=== PATIENT | female | born 1995 | race Caucasian/White ===

== ENCOUNTER 2018-08-20 09:57 | Inpatient (IN) | payer OTHER ==
[2018-08-20] MEDS ORDERED: CITRIC ACID/SODIUM CITRATE 30 ML UNIT-DOSE CUP PO ONE (10:00)
[2018-08-20] MEDS: ELECTROLYTE-148 SOLN 500 ML IV SCH (10:30)
[2018-08-20] MEDS ORDERED: ELECTROLYTE-148 SOLN 1,000 ML IV SCH (10:31)
[2018-08-20 11:11] VITALS: BMI 36.6
[2018-08-20 11:38] LABS: URINE APPEARANCE CLEAR; URINE BILIRUBIN NEGATIVE (<2.0 mg/dL); URINE COLOR YELLOW; URINE GLUCOSE (UA) NEGATIVE (NEGATIVE); URINE KETONE NEGATIVE (NEGATIVE); URINE LEUK ESTERASE NEGATIVE (NEGATIVE); URINE NITRITE NEGATIVE (NEGATIVE); URINE PROTEIN NEGATIVE (NEGATIVE); URINE UROBILINOGEN NEGATIVE mg/dL (0.2-1.0)
[2018-08-20 11:52] LABS: COCAINE, UR NEGATIVE ng/ml (CUTOFF=300); METHADONE, UR NEGATIVE ng/ml (CUTOFF=300); OPIATES, URI NEGATIVE ng/ml (CUTOFF=300); PHENCYCLIDINE,URINE NEGATIVE ng/ml (CUTOFF=25); URINE AMPHETAMINES NEGATIVE ng/ml (CUTOFF=500); URINE BARBITURATES NEGATIVE ng/ml (CUTOFF=200); URINE BENZODIAZEPINES NEGATIVE ng/ml (CUTOFF=200)
[2018-08-20] MEDS ORDERED: ONDANSETRON 4 MG/2 ML VIAL IVPUSH PRN (13:04)
[2018-08-20] MEDS ORDERED: morphine SULFATE/Preservative Free 0.5 MG/ML (1cc Syringe) EP ONE (13:04)
[2018-08-20] MEDS ORDERED: morphine SULFATE/Preservative Free 0.5 MG/ML (1cc Syringe) ONE (13:11)
[2018-08-20] MEDS ORDERED: ceFAZolin SODIUM 1 GM VIAL ONE ×2 (13:12→16:48)
--- NOTE | 2018-08-20 13:18 | HP ---
Past Medical History - Primary Care Physician PCP:: Bianca Rodriguez - Admission Chief Complaint: 22 yrs 40.5 weeks diagnosed by US breech presentation hence taken fpr promaty c/section. 08/19/18 sono amy ,40.4 wks, breech, post placenta, , bpp /, RAAD 9.2 cm, efw 8'5", marginal cord placenta insertion , NST reassuring History of Present Illness: pt presented in the clinic fro [place]. she had only one visit in the clinic at [address] [place] [address] on 08/18/18 some records from [place] noted A Neg , Antepartum RHOGAM taken hep c ab neg , hbsag neg, rpr nr, , gc/ct neg, quad screen wnl, sickle neg, pngt 108 06/01/18 tdap taken 08/18/18 hiv neg gbs pending from 08/18/18 wt gain 58 lbs History Source: Patient, Medical Record Limitations to Obtaining History: No Limitations - Past Medical History NBA PLAYER: No: Migraine Cardiovascular: No: AFIB, HTN Pulmonary: No: Asthma Gastrointestinal: No: Ascites, Cancer, Constipation, Crohn's Disease, Diverticulitis, Diverticulosis, Esophageal Varices, Gastritis, GERD, GI Bleed, Hemorrhoids, Hiatal Hernia, Inflamatory Bowel Disease, Irritable Bowel Disease, Pancreatitis, Peptic Ulcer Disease, Ulcerative Colitis, Other Hepatobiliary: No: Cirrhosis, Cholelithiasis, Cholecystitis, Choledocholithiasis , Hepatitis A, Hepatitis B, Hepatitis C, Other Renal/: No: Renal Failure, Renal Inusuff, BPH, Cancer, Hematuria, Hemodialysis , Neurogenic Bladder, Renal Calculi, UTI, Other ...: 1 ...Para: 0 ...Term: 0 ...: 0 ...Spon : 0 ...Induced : 0 ...Multiple Gestation: 0 ...EDC by Sono: 08/15/18 (40.5 weeks by sono ) Heme/Onc: No: Anemia, B12 Deficiency, Bleeding Disorder, Cancer, Current Chemotherapy, Current Radiation Therapy, Hemochromatosis, Hypercoaguable State, Myeloproliferative Synd, Sickle Cell Disease, Sickle Cell Trait, Thrombocytopenia, Other Infectious Disease: No: AIDS, C-Diff, Herpes Zoster, HIV, MRSA, STD's, Tuberculosis, VREF, Other Psych: No: Addictions, Anxiety, Bipolar, Depression, Panic, Psychosis, Schizophrenia, Other Musculoskeletal: No: Bursitis, Chronic low back pain, Hemiparesis, Hemiplegia, Osteoarthritis, Paraplegia, Other Rheumatology: No: Fibromyalgia, Gout, Lupus, Rheumatoid Arthritis, Sarcoidosis, Vasculitis, Other ENT: No: Allergic Rhinitis, Sinusitis, Other Endocrine: No: Robeson's Disease, Olive's Disease, Diabetes Insipidus, Diabetes Mellitus, Hyperparathyroidism, Hyperthyroidism, Hypothyroidism, Osteopenia, SIADH, Other Dermatology: No: Basal Cell, Cellulitis, Eczema, Melanoma, Psoriasis, Squamous Cell, Other - Past Surgical History Hx Myomectomy: No Hx Transabdominal Cerclage: No Additional Surgical History: 2016 laproscopic Left ovariotomy in 2016 in [facility]. benign tumor - Smoking History Smoking history: Never smoked Have you smoked in the past 12 months: No - Alcohol/Substance Use Hx Alcohol Use: No History of Substance Use: reports: None Home Medications - Allergies Allergies/Adverse Reactions: Allergies Allergy/AdvReac Type Severity Reaction Status Date / Time fire ant Allergy Intermediate Swelling Verified 08/20/18 10:38 - Home Medications Home Medications: Ambulatory Orders Pnv No.95/Ferrous Fum/Folic AC [ Formula] 1 each PO DAILY 08/17/18 Physical Exam - Maternity Vital Signs: Vital Signs Temperature 98.3 F 08/20/18 10:00 Pulse Rate 115 H 08/20/18 10:00 Respiratory Rate 18 08/20/18 10:00 Blood Pressure 114/68 08/20/18 10:00 O2 Sat by Pulse Oximetry (%) Selected Entries 08/20/18 10:00 Weight 213 lb Constitutional: Yes: Well Nourished, No Distress, Obese Eyes: Yes: WNL HENT: Yes: Pharyngeal Erythema Neck: Yes: WNL Cardiovascular: Yes: WNL Lungs: Clear to auscultation Breast(s): Yes: WNL - Abdominal Exam/OB Fundal Height: 40 Number of Fetuses: Single Presentation: Breech Contractions: No Monitor Mode: External Heart Rate (range): 120 Heart Rate Location: [facility] Category: I Accelerations: Uniform Decelerations: None - Vaginal Exam/OB Vaginal Bleediing: No Speculum Exam: No Dilatation (cm): close Effacement (%): unefface Amniotic Membrane Status: Intact Presentation: Sen Breech Station: -3 - Physical Exam Musculoskeletal: Yes: WNL Extremities: Yes: WNL. No: Calf Tenderness Edema: LLE: 1+, RLE: 1+ Integumentary: Yes: WNL Deep Tendon Reflex Grade: Normal +2 ...Motor Strength: WNL Psychiatric: Yes: WNL, Alert, Oriented - Labs Lab Results: Laboratory Tests 08/19/18 08/19/18 08/19/18 16:49 16:49 16:49 WBC 8.4 RBC 3.88 Hgb 11.3 Hct 33.3 Plt Count 248 PT with INR 11.40 INR 0.97 Opiates Screen Methadone Screen Barbiturate Screen Phencyclidine Screen Ur Amphetamines Screen MDMA (Ecstasy) Screen Benzodiazepines Screen Cocaine Screen U Marijuana (THC) Screen RPR Titer Nonreactive 08/20/18 10:50 WBC RBC Hgb Hct Plt Count PT with INR INR Opiates Screen Negative Methadone Screen Negative Barbiturate Screen Negative Phencyclidine Screen Negative Ur Amphetamines Screen Negative MDMA (Ecstasy) Screen Negative Benzodiazepines Screen Negative Cocaine Screen Negative U Marijuana (THC) Screen Negative RPR Titer Problem List - Problems (1) Post term over 40 weeks Code(s): O48.0 - POST-TERM (2) Sen breech presentation Code(s): O32.1XX0 - MATERNAL CARE FOR BREECH PRESENTATION, UNSP (3) Obesity (BMI 35.0-39.9 without comorbidity) Code(s): E66.9 - OBESITY, UNSPECIFIED Assessment/Plan 22 yrs .post term pregn 40.5 weeks, , Sen Breech Plan delivery by primary LFTC/Section
[2018-08-20] MEDS ORDERED: PHENYLEPHRINE HCL 10 MG/1 ML SINGLE DOSE VIAL ONE (13:31)
[2018-08-20] MEDS ORDERED: OXYTOCIN 10 UNITS/ML VIAL ONE (13:40)
[2018-08-20] MEDS ORDERED: MIDAZOLAM HCL 2 MG/2 ML SINGLE DOSE VIAL ONE (13:46)
[2018-08-20 14:02] LABS: ALBUMIN 2.8 g/dl (3.4-5.0); ALK PHOS 129 U/L (45-117); ANION GAP 8 MMOL/L (8-16); BILIRUBIN,TOTAL 0.8 mg/dL (0.2-1); BLOOD UREA NITROGEN 8 mg/dL (7-18); CALCIUM 8.1 mg/dL (8.5-10.1); CHLORIDE 105 mmol/L (98-107); CO2 25 mmol/L (21-32); CREATININE 0.5 mg/dL (0.55-1.3); GLUCOSE,RANDOM 73 mg/dL (74-106); POTASSIUM 4.2 mmol/L (3.5-5.1); SGOT/AST 10 U/L (15-37); SGPT/ALT 12 U/L (13-61); SODIUM 138 mmol/L (136-145); TOT PROT 6.1 g/dl (6.4-8.2)
[2018-08-20] MEDS ORDERED: KETOROLAC TROMETHAMINE 30 MG/1 ML VIAL ONE (14:22)
[2018-08-20] MEDS ORDERED: OXYTOCIN 20 UNITS in 0.9% NS 20 UNIT/1,000 ML INFUS.BAG IV ONE (14:33)
[2018-08-20] MEDS ORDERED: METHYLERGONOVINE MALEATE 0.2 MG/1 ML AMP IM PRN (14:38)
[2018-08-20] MEDS ORDERED: ACETAMINOPHEN 1000 MG/100 ML VIAL (NON FORMULARY) IVPB PRN (14:43)
[2018-08-20] MEDS ORDERED: OXYTOCIN 20 UNITS in 0.9% NS 20 UNIT/1,000 ML INFUS.BAG IV SCH (14:45)
[2018-08-20 15:02] LABS: ARTERIAL BLD GAS O2 SATURATION 2.1 % (90-98.9); ARTERIAL BLOOD GAS BASE EXCESS -4.5 meq/l (-2-2); ARTERIAL BLOOD GAS PO2 4.5 mmHg (80-100); ARTERIAL BLOOD GAS pH 7.19 (7.35-7.45)
[2018-08-20 15:09] LABS: VENOUS PC02 53.3 mmHg (38-52); VENOUS PH 7.29 (7.32-7.42)
--- NOTE | 2018-08-20 15:09 | PN ---
Delivery - Delivery Section: Primary, Low Flap Transverse (40.5 week, breech) Type of Anesthesia: Spinal EBL (cc): 650 (urine out put 50 ml kirill color) Delivery, Single - Stages of Labor Date of Delivery: 08/20/18 Time of Delivery: 13:43 Date Placenta Delivered: 08/20/18 Time Placenta Delivered: 13:45 Placenta: Yes: Manual Removal, Uterine Exploration - Condition of Lacing Operator/Conveyor Line Bakery Worker Present: Yes Name: Gina Higgins Gender: Female Weight: 8 lb 8 oz Position: Left, SP (EVIN BREECH) Total Hours ROM (Hrs/Mins): 2 min - 1 Minute Total Score: 9 5 Minutes Total Score: 9 - Feeding Plan Initial Plan: Exclusive throughout hospitalization Remarks - Remarks Remarks: 22yrs ,40.5 weeks Breech [facility] in [place] .only one visit at [address] [place] [address] intraop cpourse uneventful
[2018-08-20 15:10] LABS: VENOUS PO2 10.8 mmHg (28-48)
--- NOTE | 2018-08-20 16:08 | OP ---
DATE OF OPERATION: 08/20/2018 PREOPERATIVE DIAGNOSIS: A 40.5 weeks, breech presentation, and the patient not in labor. OPERATION DONE: Primary low-flap transverse section. SURGEON: Bianca Rodriguez MD MOTH EXTERMINATOR SURGEON: WILLARD Cazares ANESTHESIOLOGIST: Caryl Garrett MD ANESTHESIA: Spinal. FINDINGS: This is a 22-year-old, 1, para 0 with just 1 visit in the clinic, care in [place], had post-date antepartum testing. Biophysical profile was 8/8 on August 19. Breech presentation was diagnosed, and NST was reactive; so , patient was scheduled for , and she was not in labor. DESCRIPTION OF PROCEDURE: Abdomen was shaved, prepped. Hooks catheter was placed. She was taken to the operating room table. Spinal anesthesia was given. SCD stockings were applied. Patient is obese. Patient was in supine position. Abdomen was painted and draped in usual manner. Pfannenstiel incision was made through the skin, subcutaneous tissue. Anterior rectus sheath was incised transversely. Bleeding points were clamped and cauterized. Rectus muscle was from the rectus sheath. Parietal peritoneum was opened vertically. Lower flap bladder peritoneum was incised transversely. Lower uterine segment was incised transversely, and baby was in teena breech presentation, left sacral posterior. Breech was brought down and thigh was hooked and first, both the legs were brought down and delivered, followed by the body and then the arms and lastly the head. The cord was clamped, cut. Cord blood was collected, and cord blood gas also was collected. Dr. Gina Higgins was present, form setter steel forms, in the room. Baby's Apgars were 9 and 9. The weight is 8 pounds 8 ounces, baby girl, and baby born at 1:43 p.m. Placenta was removed completely with the membranes, and the uterine incision was closed in 2 layers. First layer was a continuous locking with a Biosyn 0 suture. Second layer was a continuous intermittently-locking with a Biosyn 0 suture. Bladder peritoneum also was closed with a Biosyn 0 suture. Incidentally, she had absence of the left ovary and the tube. 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 Right-side tube and ovary were normal. Irrigation was done, and sponge, instrument, needle count was correct. The closure of the abdomen was done. Parietal peritoneum was closed with a Vicryl 0 suture, and then, muscles were approximated together with Vicryl 0 interrupted sutures. Hemostasis was checked underneath the rectus sheath flaps. Rectus sheath was closed with a Vicryl 0 suture. Continuous sutures were taken. Subcutaneous tissue hemostasis was verified, and then, skin was approximated with erika. Patient tolerated the procedure well , and she was transferred to the recovery room in stable condition. Estimated blood loss was 650 mL. Urine output intraoperative was 50 mL. It was kirill color. She received 2 g of IV Ancef intraoperatively. Dunia [id number] MTDD
[2018-08-20] MEDS ORDERED: DEXTROSE 5%-WATER - 50 ML IVPB ONE (16:48)
[2018-08-20] MEDS ORDERED: TUBERCULIN PPD 5 TU/0.1ML SYRINGE (IN PATIENT USE ONLY) ID ONE (17:00)
[2018-08-20] MEDS: CEFAZOLIN 1 GM in DEXTROSE 5%-WATER - 50 ML IVPB SCH (17:27)
[2018-08-21] MEDS ORDERED: ceFAZolin SODIUM 1 GM VIAL ONE ×2 (00:58→08:54)
[2018-08-21] MEDS ORDERED: DEXTROSE 5%-WATER - 50 ML IVPB ONE ×2 (00:58→08:54)
[2018-08-21] MEDS: CEFAZOLIN 1 GM in DEXTROSE 5%-WATER - 50 ML IVPB SCH ×2 (01:44→09:07)
--- NOTE | 2018-08-21 06:12 | PN ---
Progress Note (short form) - Note Progress Note: pod 1 s/p c/s , c/o incisional pain , no excess vaginal bleeding CBC, BMP 08/20/18 13:05 Last Vital Signs Temp Pulse Resp BP Pulse Ox 98.7 F 98 H 20 124/80 100 08/21/18 01:44 08/21/18 01:44 08/21/18 04:00 08/21/18 01:44 08/20/18 16:10 abdomen soft, no distension . no cva incision dry, clen no calf tenderness lochia mild plan ambulate, cbc pain management
[2018-08-21 07:55] LABS: BASO % 0.2 % (0-2.0); EOS % 0.1 % (0-4.5); HEMATOCRIT 28.3 % (32.4-45.2); HEMOGLOBIN 9.2 GM/dL (10.7-15.3); LYMPH % 9.3 % (8-40); MCH 28.1 pg (25.7-33.7); MCHC 32.5 g/dl (32.0-36.0); MEAN CELL VOLUME 86.6 fl (80-96); MEAN PLT VOLUME 8.1 fl (7.5-11.1); MONO % 6.8 % (3.8-10.2); NEUT % 83.6 % (42.8-82.8); PLATELET COUNT 156 K/MM3 (134-434); RBC 3.27 M/mm3 (3.60-5.2); RDW 14.1 % (11.6-15.6); WHITE BLOOD COUNT 11.6 K/mm3 (4.0-10.0)
[2018-08-21] MEDS ORDERED: oxyCODONE HCL 5 MG TABLET PO PRN (08:00)
--- NOTE | 2018-08-21 09:07 | PN ---
Progress Note (short form) - Note Progress Note: Anesthesia POD#1 * S/P under e and Epidural and DM * VSS,no N/V,pain is under control,legs have full strength, * * Chelsy Meza MD.
[2018-08-21] MEDS: PRENATAL VITAMINS W/ FOLIC ACID TABLET (FP) PO SCH (09:08)
[2018-08-21] MEDS: ENOXAPARIN NA (PORCINE) 40 MG/0.4 ML DISP.SYRIN SQ SCH (09:08)
[2018-08-21] MEDS: FERROUS SO4 325 MG TABLET (FP) PO SCH ×2 (09:08→18:02)
[2018-08-21] MEDS: SIMETHICONE 80 MG TAB.CHEW (FP) PO PRN ×2 (10:09→15:55)
[2018-08-21] MEDS: IBUPROFEN 600 MG TABLET (FP) PO PRN ×2 (10:10→15:55)
[2018-08-21] MEDS: oxyCODONE HCL 5 MG TABLET PO PRN ×2 (10:10→15:55)
[2018-08-21] MEDS ORDERED: BISACODYL 10 MG SUPP.RECT RC PRN (14:38)
[2018-08-21] MEDS: SENNOSIDES/DOCUSATE COMBO (SENNA PLUS) TABLET (UD) PO PRN (20:24)
[2018-08-22] MEDS: SIMETHICONE 80 MG TAB.CHEW (FP) PO PRN ×3 (02:24→15:14)
[2018-08-22] MEDS: oxyCODONE HCL 5 MG TABLET PO PRN ×2 (02:24→09:25)
[2018-08-22] MEDS: IBUPROFEN 600 MG TABLET (FP) PO PRN ×2 (02:25→15:13)
--- NOTE | 2018-08-22 07:30 | PN ---
Post Progress Note - Subjective Subjective: c/o pain scale 4-5/10 voiding without difficulty bm not done Post Day: 1 Type of Delivery: Primary C/S Vital Signs: Vital Signs Temperature 98.4 F 08/21/18 21:00 Pulse Rate 95 H 08/21/18 21:00 Respiratory Rate 20 08/21/18 21:00 Blood Pressure 129/74 08/21/18 21:00 O2 Sat by Pulse Oximetry (%) 100 08/20/18 16:10 Breast Exam: Yes: Soft, Other (BF ). No: Engorged Uterus: Yes: Fundus Firm, Fundus below umbilicus, Non-tender Incision: Yes: [place] intact. No: Redness, Oozing Abdomen/GI: Yes: Abdomen soft, Passing flatus, Tolerating PO (diet ). No: Abdominal Distention, Tender Lochia: Yes: Rubra Lochia, amount: Moderate Extremities: Yes: Calves non-tender Perineum: Yes: Intact Activity: Ambulating - Labs Labs: CBC WBC 11.6 K/mm3 (4.0-10.0) H 08/21/18 07:00 RBC 3.27 M/mm3 (3.60-5.2) L 08/21/18 07:00 Hgb 9.2 GM/dL (10.7-15.3) L 08/21/18 07:00 Hct 28.3 % (32.4-45.2) L D 08/21/18 07:00 MCV 86.6 fl (80-96) 08/21/18 07:00 MCH 28.1 pg (25.7-33.7) 08/21/18 07:00 MCHC 32.5 g/dl (32.0-36.0) 08/21/18 07:00 RDW 14.1 % (11.6-15.6) 08/21/18 07:00 Plt Count 156 K/MM3 (134-434) D 08/21/18 07:00 MPV 8.1 fl (7.5-11.1) 08/21/18 07:00 Absolute Neuts (auto) 9.7 K/mm3 (1.5-8.0) H 08/21/18 07:00 Neutrophils % 83.6 % (42.8-82.8) H 08/21/18 07:00 Lymphocytes % 9.3 % (8-40) D 08/21/18 07:00 Monocytes % 6.8 % (3.8-10.2) 08/21/18 07:00 Eosinophils % 0.1 % (0-4.5) 08/21/18 07:00 Basophils % 0.2 % (0-2.0) 08/21/18 07:00 Nucleated RBC % 0 % (0-0) 08/21/18 07:00 Problem List - Problems (1) Post term over 40 weeks Code(s): O48.0 - POST-TERM (2) Sen breech presentation Code(s): O32.1XX0 - MATERNAL CARE FOR BREECH PRESENTATION, UNSP (3) Obesity (BMI 35.0-39.9 without comorbidity) Code(s): E66.9 - OBESITY, UNSPECIFIED (4) delivery delivered Code(s): O82 - ENCOUNTER FOR DELIVERY WITHOUT INDICATION (5) Encounter for visit Code(s): Z39.2 - ENCOUNTER FOR ROUTINE FOLLOW-UP Assessment/Plan stable, anemia , well compensated Plan ct Post op care encourage ambulation , deep breathing, po fluids
[2018-08-22] MEDS: FERROUS SO4 325 MG TABLET (FP) PO SCH ×2 (09:16→17:36)
[2018-08-22] MEDS: PRENATAL VITAMINS W/ FOLIC ACID TABLET (FP) PO SCH (09:16)
[2018-08-22] MEDS: ACETAMINOPHEN 325 MG TABLET (FP) PO PRN ×2 (09:25→15:13)
[2018-08-22] MEDS: ENOXAPARIN NA (PORCINE) 40 MG/0.4 ML DISP.SYRIN SQ SCH (09:43)
[2018-08-22] MEDS: ELECTROLYTE-148 SOLN 500 ML IV SCH (17:00)
[2018-08-22] MEDS: SENNOSIDES/DOCUSATE COMBO (SENNA PLUS) TABLET (UD) PO PRN (21:29)
[2018-08-23 08:19] LABS: BASO % 0.4 % (0-2.0); EOS % 2.5 % (0-4.5); HEMATOCRIT 27.8 % (32.4-45.2); HEMOGLOBIN 9.2 GM/dL (10.7-15.3); MCH 28.7 pg (25.7-33.7); MCHC 32.9 g/dl (32.0-36.0); MEAN CELL VOLUME 87.1 fl (80-96); MEAN PLT VOLUME 8.2 fl (7.5-11.1); MONO % 8.7 % (3.8-10.2); NEUT % 71.4 % (42.8-82.8); PLATELET COUNT 192 K/MM3 (134-434); RDW 14.3 % (11.6-15.6); WHITE BLOOD COUNT 6.8 K/mm3 (4.0-10.0)
[2018-08-23] MEDS: FERROUS SO4 325 MG TABLET (FP) PO SCH ×2 (09:18→17:47)
[2018-08-23] MEDS: PRENATAL VITAMINS W/ FOLIC ACID TABLET (FP) PO SCH (09:18)
[2018-08-23] MEDS: ENOXAPARIN NA (PORCINE) 40 MG/0.4 ML DISP.SYRIN SQ SCH (09:19)
--- NOTE | 2018-08-23 09:38 | PN ---
Post Progress Note - Subjective Subjective: no c/o pain , max 4-5/10 while walking Post Day: 3 Type of Delivery: Primary C/S Vital Signs: Vital Signs Temperature 98.5 F 08/22/18 21:00 Pulse Rate 88 08/22/18 21:00 Respiratory Rate 18 08/22/18 21:00 Blood Pressure 128/76 08/22/18 21:00 O2 Sat by Pulse Oximetry (%) 100 08/20/18 16:10 Breast Exam: Yes: Soft, Other (BF, using Breast pump ). No: Engorged Uterus: Yes: Fundus Firm, Fundus below umbilicus, Non-tender Incision: Yes: Eusebio intact. No: Redness, Oozing, Other Abdomen/GI: Yes: Abdomen soft, Passing flatus (bm done ), Tolerating PO (diet). No: Abdominal Distention (obese) Lochia: Yes: Rubra Lochia, amount: Moderate Extremities: Yes: Calves non-tender Perineum: Yes: Intact Activity: Ambulating - Labs Labs: CBC WBC 6.8 K/mm3 (4.0-10.0) 08/23/18 07:20 RBC 3.20 M/mm3 (3.60-5.2) L 08/23/18 07:20 Hgb 9.2 GM/dL (10.7-15.3) L 08/23/18 07:20 Hct 27.8 % (32.4-45.2) L 08/23/18 07:20 MCV 87.1 fl (80-96) 08/23/18 07:20 MCH 28.7 pg (25.7-33.7) 08/23/18 07:20 MCHC 32.9 g/dl (32.0-36.0) 08/23/18 07:20 RDW 14.3 % (11.6-15.6) 08/23/18 07:20 Plt Count 192 K/MM3 (134-434) D 08/23/18 07:20 MPV 8.2 fl (7.5-11.1) 08/23/18 07:20 Absolute Neuts (auto) 4.9 K/mm3 (1.5-8.0) 08/23/18 07:20 Neutrophils % 71.4 % (42.8-82.8) 08/23/18 07:20 Lymphocytes % 17.0 % (8-40) D 08/23/18 07:20 Monocytes % 8.7 % (3.8-10.2) 08/23/18 07:20 Eosinophils % 2.5 % (0-4.5) D 08/23/18 07:20 Basophils % 0.4 % (0-2.0) 08/23/18 07:20 Nucleated RBC % 0 % (0-0) 08/23/18 07:20 Problem List - Problems (1) Post term over 40 weeks Code(s): O48.0 - POST-TERM (2) Sen breech presentation Code(s): O32.1XX0 - MATERNAL CARE FOR BREECH PRESENTATION, UNSP (3) Obesity (BMI 35.0-39.9 without comorbidity) Code(s): E66.9 - OBESITY, UNSPECIFIED (4) delivery delivered Code(s): O82 - ENCOUNTER FOR DELIVERY WITHOUT INDICATION (5) Encounter for visit Code(s): Z39.2 - ENCOUNTER FOR ROUTINE FOLLOW-UP (6) Anemia Code(s): D64.9 - ANEMIA, UNSPECIFIED Assessment/Plan post c/section, anemia counselled plan ct po care, discharge tomorrow.
[2018-08-23] MEDS: oxyCODONE HCL 5 MG TABLET PO PRN (15:36)
[2018-08-23] MEDS: IBUPROFEN 600 MG TABLET (FP) PO PRN (15:37)
--- NOTE | 2018-08-24 07:15 | DS ---
Physical Exam-MARGARINE CHURN OPERATOR Vital Signs: Vital Signs Temperature 98.1 F 08/23/18 21:00 Pulse Rate 85 08/23/18 21:00 Respiratory Rate 20 08/23/18 21:00 Blood Pressure 128/63 08/23/18 21:00 O2 Sat by Pulse Oximetry (%) 100 08/20/18 16:10 Constitutional: Yes: Well Nourished, Obese Eyes: Yes: WNL HENT: Yes: WNL, Normocephalic Neck: Yes: WNL Cardiovascular: Yes: WNL, Regular Rate and Rhythm Respiratory: Yes: WNL, CTA Bilaterally Gastrointestinal: Yes: WNL, Normal Bowel Sounds, Soft, Abdomen, Obese, Other ( bm done). No: Distention Renal/: Yes: WNL, Other (voiding without difficulty). No: CVA Tenderness - Left, CVA Tenderness - Right ....Post : Yes: Uterus firm, Uterus non-tender, Moderate lochia rubra Breast(s): Yes: WNL, Other (not engorged, breast feeding , using breast pump) Musculoskeletal: Yes: WNL Extremities: Yes: WNL. No: Calf Tenderness Edema: LLE: 1+, RLE: 1+ Wound/Incision: Yes: Clean/Dry, Well Approximated, Steri Strips, Open to air, Whitney Removed. No: Reddened, Bleeding Neurological: Yes: WNL, Alert, Oriented ...Motor Strength: WNL Psychiatric: Yes: WNL, Alert, Oriented Labs: CBC, BMP 08/23/18 07:20 08/20/18 13:05 Delivery - Delivery Section: Primary, Low Flap Transverse (40.5 week, breech) Type of Anesthesia: Spinal Episiotomy/Laceration: None EBL (cc): 650 (urine out put 50 ml kirill color) Delivery, Single - Stages of Labor Date of Delivery: 08/20/18 Time of Delivery: 13:43 Time Placenta Delivered: 13:45 Placenta: Yes: Manual Removal, Uterine Exploration - Condition of Superintendent Schools/Support Teacher Present: Yes Name: Gina Higgins Gender: Female Weight: 8 lb 8 oz Position: Left, SP (SEN BREECH) Total Hours ROM (Hrs/Mins): 2 min - 1 Minute Total Score: 9 5 Minutes Total Score: 9 - [place] Feeding Plan Initial Plan: Exclusive throughout hospitalization Remarks - Remarks Remarks: 22yrs ,40.5 weeks Breech [facility] in [place] .only one visit at [address] [place] [address] intraop cpourse uneventful Post Op course uneventful Anemia counselled discharge today Discharge Summary Reason For Visit: Current Active Problems Anemia (Acute) delivery delivered (Acute) Encounter for visit (Acute) Sen breech presentation (Acute) Obesity (BMI 35.0-39.9 without comorbidity) (Acute) Post term over 40 weeks (Acute) Condition: Stable - Instructions Diet, Activity, Other Instructions: Post Instructions DIET: Continue good diet high in protein, calcium, and iron rich foods. Drink at least eight (8) glasses of water daily in addition to other fluids. ct Regular diet MEDICATIONS: Continue vitamins and iron as previously directed. Motrin and Tylenol may be taken for minor discomfort. ACTIVITY: Mild to moderate exercise may be started in two (2) weeks. Take frequent rest periods. Resume normal activity after six (6) week check up. WOUND CARE OF OPERATIVE SITE: Continue use of perineal bottle until vaginal discharge stops. Keep area clean. Shower daily. Keep abdominal wound dry. Report any drainage or redness to physician. Tub baths, tampons and douches are not permitted for [address] Breast feeding & or Bottle feeding BREAST CARE: (For those that are not breast feeding): If engorgement occurs: Wear tight fitting bra. Take Tylenol or Motrin for pain. Apply cold packs (ice in bags to each breast ) FAMILY PLANNING: There are many control alternatives to pursue and they should be discussed at your first office visit. You may resume sexual activity after your six (6) week check up. (Remember, breast feeding is not a contraceptive) NEXT PHYSICIAN APPOINTMENT: Be certain to call for a one (1) week appointment, unless otherwise directed. Call Clinic or got to Emergency Dept if you have any of the following: Heavy vaginal bleeding Painful urination Leg pain Unusual odor noted to vaginal bleeding High fever Red streaking noted on breast Referrals: Bianca Rodriguez MD [Staff Physician] - Disposition: HOME - Home Medications Comprehensive Discharge Medication List: Ambulatory Orders Pnv No.95/Ferrous Fum/Folic AC [ Formula Tablet] 1 each PO DAILY Acetaminophen [Tylenol .Regular Strength -] 500 mg PO Q4H PRN #30 tablet Ferrous Sulfate [Feosol] 325 mg PO BIDPC #60 tab 08/23/18 Ibuprofen [Motrin -] 600 mg PO Q4H PRN #30 tablet 08/23/18 Vitamins (Sjr) - 1 tab PO DAILY #30 tablet 08/23/18 Sennosides/Docusate Sodium [Pericolace -] 2 tablet PO HS PRN #30 tablet
[2018-08-24 08:12] VITALS: BP 123/67; PULSE 89; TEMP 98.6
[2018-08-24] MEDS: ENOXAPARIN NA (PORCINE) 40 MG/0.4 ML DISP.SYRIN SQ SCH (09:41)
[2018-08-24] MEDS: FERROUS SO4 325 MG TABLET (FP) PO SCH (09:41)
[2018-08-24] MEDS: PRENATAL VITAMINS W/ FOLIC ACID TABLET (FP) PO SCH (09:42)
--- NOTE | 2018-08-31 14:54 | PATH ---
Surgical Pathology Report Patient Name: BG GILLILAND [facility]. Rec. #: [id number] /Age/Gender: 1995 (Age: 22) / F Account: [id number] [facility] OBS/QUALITY SYSTEMS SPECIALIST Taken: 08/20/2018 Received: 08/21/2018 Reported: 08/31/2018 Physicians: Bianca Rodriguez M.D. Specimen(s) Received PLACENTA Clinical History , 40.5 weeks breech Left ovary removed 2015 Final Diagnosis PLACENTA, SECTION: 428 G THIRD TRIMESTER PLACENTA WITH TRIVASCULAR UMBILICAL CORD AND UNREMARKABLE PLACENTAL MEMBRANES. Electronically Signed Fabby Johnson M.D. Gross Description The specimen is received fresh labeled placenta and is a 428 gram, 15.0 x 14.5 x 2.8 cm. placenta with attached membranes and umbilical cord. The attached membranes are seth, translucent with focal opacities and insert marginally. The umbilical cord measures 17 cm. in length and averages 1 cm. in diameter. The cord inserts eccentrically, 2.5 cm. to the nearest margin. No true knots or strictures are identified. Cut surface of the umbilical cord reveals 3 vessels. The surface is blackwell-blue with minimal fibrin deposition and appropriate caliber vessels. The maternal surface is red-brown with focal defects. Sectioning reveals red-brown, spongy parenchyma. No lesions are identified. Timber Faller sections are submitted in three cassettes as follows: 1- membrane rolls and umbilical cord; 2-3- full thickness sections of placenta. 08/28/2018 saudi08/28/2018
== END 2018-08-24 10:30 | disposition home or self-care (01) | DRG 540 ==
LOC: JLDR 09:57 → J3W 16:20
PROVIDERS: ADMIT Obstetrics & Gynecology; ATTEND Obstetrics & Gynecology
PROC: 10D00Z1 Extraction of Products of Conception, Low, Open Approach (ICD-10-PCS; principal; 2018-08-20)
DX: O32.1XX0 Maternal care for breech presentation, not applicable or unspecified (principal); O48.0 Post-term pregnancy; O99.214 Obesity complicating childbirth; E66.9 Obesity, unspecified; Z3A.40 40 weeks gestation of pregnancy; O99.02 Anemia complicating childbirth; D64.9 Anemia, unspecified; Z37.0 Single live birth; Z68.36 Body mass index [BMI] 36.0-36.9, adult
CPT/HCPCS: 36415; 36600; 80053; 80307; 81003; 82803; 85025; 85461; 86900; 86999; 88307-TC; 90686; G0008; J0131

== ENCOUNTER 2018-09-14 20:30 | Emergency (ER) | payer OTHER ==
--- NOTE | 2018-09-14 20:49 | PDOC ---
Rapid Medical Evaluation Time Seen by Provider: 09/14/18 20:46 Medical Evaluation: Allergies Allergy/AdvReac Type Severity Reaction Status Date / Time fire ant Allergy Intermediate Swelling Verified 08/20/18 10:38 09/14/18 20:46 I have performed a brief in-person evaluation of this patient. The patient presents with a chief complaint of: s/p csection ~1 month ago, w/ redness and foul odor to csection site today after removing steri strip today. No pain, n/v/f/c Pertinent physical exam findings:Well bria and in NAD, defer rest of exam to ED provider I have ordered the following:nothing The patient will proceed to the ED for further evaluation Discharge Disposition - Diagnosis Status post - Referrals - Patient Instructions - Post Discharge Activity
[2018-09-14 20:50] VITALS: BP 124/63; PULSE 81; TEMP 98.8; BMI 35.0
--- NOTE | 2018-09-14 22:25 | PDOC ---
History of Present Illness - General Chief Complaint: Wound Stated Complaint: WOUND INFECTION Time Seen by Provider: 09/14/18 20:46 - History of Present Illness Initial Comments: 09/14/18 22:23 21-year-old female without comorbidities 20 days status post concerned about her scar with associated redness and malodor Past History - Past Medical History Allergies/Adverse Reactions: Allergies Allergy/AdvReac Type Severity Reaction Status Date / Time fire ant Allergy Intermediate Swelling Verified 08/20/18 10:38 Home Medications: Ambulatory Orders Pnv No.95/Ferrous Fum/Folic AC [ Formula Tablet] 1 each PO DAILY Ferrous Sulfate [Feosol] 325 mg PO BIDPC #60 tab 08/23/18 Vitamins (Sjr) - 1 tab PO DAILY #30 tablet 08/23/18 Sennosides/Docusate Sodium [Pericolace -] 2 tablet PO HS PRN #30 tablet Asthma: No Cancer: No Cardiac Disorders: No COPD: No Diabetes: No HTN: No Seizures: No Thyroid Disease: No - Suicide/Smoking/Psychosocial Hx Smoking History: Never smoked Have you smoked in the past 12 months: No Information on smoking cessation initiated: No Hx Alcohol Use: No Drug/Substance Use Hx: No Hx Substance Use Treatment: No Review of Systems - Review of Systems Constitutional: No: Chills, Fever, Malaise, Night Sweats Integumentary: Yes: See HPI *Physical Exam - Vital Signs Last Vital Signs Temp Pulse Resp BP Pulse Ox 98.8 F 81 17 124/63 100 09/14/18 20:46 09/14/18 20:46 09/14/18 20:46 09/14/18 20:46 09/14/18 20:46 - Physical Exam Comments: 09/14/18 22:23 The scar is well-healed. There is mild erythema about the wound edges without drainage there is no sensitivity fluctuance induration or warmth. The wound is otherwise clean and dry and intact. Moderate Sedation - Procedure Monitoring Vital Signs: Procedure Monitoring Vital Signs Temperature 98.8 F 09/14/18 20:46 Pulse Rate 81 09/14/18 20:46 Respiratory Rate 17 09/14/18 20:46 Blood Pressure 124/63 09/14/18 20:46 O2 Sat by Pulse Oximetry (%) 100 09/14/18 20:46 Medical Decision Making - Medical Decision Making 09/14/18 22:24 This is a localized skin reaction to Steri-Strips there is no infection present. *DC/Admit/Observation/Transfer Diagnosis at time of Disposition: Status post , Skin irritation - Discharge Dispostion Disposition: HOME Condition at time of disposition: Stable Decision to Admit order: No - Referrals Referrals: Alysa Rivera MD [Non Staff, Medical] - - Patient Instructions Additional Instructions: Return to the emergency room should symptoms worsen or go unresolved. Please follow-up with your CHILD PROTECTIVE SERVICES SPECIALIST in one to 2 days for further evaluation and treatment options. I do not see anything infectious that will require an antibiotic today that may change in the future. This appears to be a localized skin reaction to the Steri-Strips. Keep the area clean and dry during the day did not allow your pants to apply pressure to the area. Keep the area clean with soap and water and left open to air. Do not shave the area - Post Discharge Activity
== END 2018-09-14 22:27 | disposition home or self-care (01) ==
LOC: JERFT 20:30
DX: Z48.01 Encounter for change or removal of surgical wound dressing (principal)
CPT/HCPCS: 99281-25

== ENCOUNTER 2018-10-19 09:21 | Emergency (ER) | payer OTHER ==
[2018-10-19 09:42] VITALS: BP 130/81; PULSE 105; TEMP 99; BMI 34.3
[2018-10-19] MEDS ORDERED: KETOROLAC TROMETHAMINE 60 MG/2 ML VIAL IM ONE (10:21)
--- NOTE | 2018-10-19 10:27 | PDOC ---
History of Present Illness - General Chief Complaint: Sore Throat Stated Complaint: Sore Throat Time Seen by Provider: 10/19/18 10:14 History Source: Patient - History of Present Illness Timing/Duration: reports: other Associated Symptoms: reports: fever/chills, muscle aches, nasal congestion Past History - Past Medical History Allergies/Adverse Reactions: Allergies Allergy/AdvReac Type Severity Reaction Status Date / Time fire ant Allergy Intermediate Swelling Verified 10/19/18 09:39 Home Medications: Ambulatory Orders NK [No Known Home Medication] 10/19/18 Asthma: No Cancer: No Cardiac Disorders: No COPD: No Diabetes: No HTN: No Seizures: No Thyroid Disease: No - Immunization History Immunization Up to Date: Yes - Suicide/Smoking/Psychosocial Hx Smoking History: Never smoked Have you smoked in the past 12 months: No Hx Alcohol Use: Yes Drug/Substance Use Hx: No Hx Substance Use Treatment: No Review of Systems - Review of Systems Constitutional: Yes: Chills, Fever, Malaise HEENTM: Yes: Throat Pain. No: Ear Pain Respiratory: No: Cough, Shortness of Breath ABD/GI: No: Diarrhea, Nausea, Vomiting *Physical Exam - Vital Signs Last Vital Signs Temp Pulse Resp BP Pulse Ox 99.0 F 105 H 18 130/81 100 10/19/18 09:39 10/19/18 09:39 10/19/18 09:39 10/19/18 09:39 10/19/18 09:39 - Physical Exam General Appearance: Yes: Appropriately Dressed HEENT: positive: Normal ENT Inspection, Normal Voice. negative: Scleral Icterus (R), Scleral Icterus (L), Muffled/Hoarse voice Neck: positive: Supple. negative: Lymphadenopathy (R), Lymphadenopathy (L) Respiratory/Chest: positive: Lungs Clear, Normal Breath Sounds. negative: Respiratory Distress Cardiovascular: positive: Regular Rate, S1, S2 Integumentary: positive: Dry, Warm Neurologic: positive: Fully Oriented, Alert, Normal Mood/Affect Moderate Sedation - Procedure Monitoring Vital Signs: Procedure Monitoring Vital Signs Temperature 99.0 F 10/19/18 09:39 Pulse Rate 105 H 10/19/18 09:39 Respiratory Rate 18 10/19/18 09:39 Blood Pressure 130/81 10/19/18 09:39 O2 Sat by Pulse Oximetry (%) 100 10/19/18 09:39 Medical Decision Making - Medical Decision Making 10/19/18 10:25 22-year-old female, no significant history, s/p flu vacine, on control, here with body aches with malaise for sore throat and subjective fever 3 days. Has a child at home with similar symptoms. Patient bria mildly uncomfortable here and tachy to 105, exam otherwise unremarkable. Will rule out strep and flu. Pain control in ED. Anticipate discharge with supportive treatment 10/19/18 10:52 Flu and strep neg. Dc w/ supportive tx *DC/Admit/Observation/Transfer Diagnosis at time of Disposition: Viral syndrome - Discharge Dispostion Disposition: HOME Condition at time of disposition: Good - Referrals - Patient Instructions Printed Discharge Instructions: DI for Viral Syndrome Additional Instructions: You have a viral illness. Your strep and flu were negative. Rest, drink plenty of fluids and take [id number] medications as needed - Post Discharge Activity
[2018-10-19] MEDS ORDERED: KETOROLAC TROMETHAMINE 60 MG/2 ML VIAL ONE (10:28)
== END 2018-10-19 10:55 | disposition home or self-care (01) ==
LOC: JERFT 09:21
PROC: 3E0233Z Introduction of Anti-inflammatory into Muscle, Percutaneous Approach (ICD-10-PCS; principal; 2018-10-19)
DX: B34.9 Viral infection, unspecified (principal)
CPT/HCPCS: 87070; 87804; 87880; 96372; 99281-25

== ENCOUNTER 2024-01-26 00:12 | Emergency (ER) | payer OTHER ==
[2024-01-26 00:23] VITALS: BP 125/75; PULSE 82; RESP 17; TEMP 98.1; BMI 36.0
[2024-01-26] MEDS ORDERED: AMOX TR/POT CLAV 875MG/125MG TABLETS (FP) ONE (01:21)
[2024-01-26] MEDS: AMOX TR/POT CLAV 875MG/125MG TABLETS (FP) PO ONE (01:30)
== END 2024-01-26 02:31 | disposition home or self-care (01) ==
LOC: FER 00:12
DX: L03.012 Cellulitis of left finger (principal); M79.645 Pain in left finger(s)
CPT/HCPCS: 99283-25

== ENCOUNTER 2024-01-29 11:46 | Emergency (ER) | payer OTHER ==
[2024-01-29 11:58] VITALS: BP 120/74; PULSE 94; RESP 15; TEMP 99.2; BMI 36.0
[2024-01-29] MEDS ORDERED: LIDOCAINE HCL 2% (20ML MULTI-DOSE VIAL) ONE (12:15)
[2024-01-29] MEDS: LIDOCAINE HCL 2% (50ML VIAL) INF ONE (12:22)
== END 2024-01-29 12:59 | disposition home or self-care (01) ==
LOC: FER 11:46
PROC: 0X9K0ZZ Drainage of Left Hand, Open Approach (ICD-10-PCS; principal; 2024-01-29)
DX: L03.012 Cellulitis of left finger (principal)
CPT/HCPCS: 99282-25